=== PATIENT | female | born 1965 | race Caucasian/White ===

== ENCOUNTER → 2017-08-14 | Outpatient (CLI) | payer BC | LOC: CIMAGING 11:12 | PROVIDERS: ATTEND Orthopaedic Surgery | DX: Z01.818 Encounter for other preprocedural examination (principal); S92.901A Unspecified fracture of right foot, initial encounter for closed fracture | CPT/HCPCS: 73700-PO ==

== ENCOUNTER → 2017-09-25 | Outpatient (CLI) | payer BC | LOC: CIMAGING 10:22 | PROVIDERS: ATTEND Family Medicine | DX: J40 Bronchitis, not specified as acute or chronic (principal) | CPT/HCPCS: 71046-PO ==

== ENCOUNTER 2017-11-23 09:01 | Inpatient (IN) | payer BC ==
[2017-11-23] MEDS ORDERED: ceFAZolin 2 GM/SWFI 2 GM/20 ML SYR IVP ONE (09:25)
[2017-11-23] MEDS ORDERED: LR 1,000 ML IV ONE (09:26)
[2017-11-23] MEDS ORDERED: ceFAZolin 2 GM/DEXTROSE 100 ML IV ONE (09:30)
[2017-11-23] MEDS ORDERED: BUPIVACAINE 0.5% 30 ML SDV ONE (09:36)
--- NOTE | 2017-11-23 10:20 | PDHPUP ---
History & Physical Update H&P update statement: This history and physical update is based on an assessment of the patient which was completed after admission or registration (within 24 hours), but prior to the surgery/procedure. H&P update: H&P reviewed & patient examined, no change in patient's condition since H&P completed
[2017-11-23] MEDS ORDERED: MIDAZOLAM 2 MG/2 ML VIAL IVP ONE (10:28)
--- NOTE | 2017-11-23 10:28 | PDANEPAE ---
ANE History of Present Illness right foot fusion ANE Past Medical History - Cardiovascular History Hx Hypertension: Yes Hx Arrhythmias: No Hx Chest Pain: No Hx Coronary Artery / Peripheral Vascular Disease: No Hx CHF / Valvular Disease: No Hx Palpitations: No Cardiovascular History Comment: Pt blood pressure 155/97. - Pulmonary History Hx COPD: No Hx Asthma/Reactive Airway Disease: No Hx Recent Upper Respiratory Infection: No Hx Oxygen in Use at Home: No Hx Sleep Apnea: No Sleep Apnea Screening Result - Last Documented: Negative - Neurologic History Hx Cerebrovascular Accident: No Hx Seizures: No Hx Dementia: No - Endocrine History Hx Diabetes: Yes Endocrine History Comment: pt back on metformin and insulin - Renal History Hx Renal Disorders: No - Liver History Hx Hepatic Disorders: Yes Hepatic History Comment: fatty liver - Neurological & Psychiatric Hx Hx Neurological and Psychiatric Disorders: No - Cancer History Hx Cancer: No - Congenital Disorder History Hx Congenital Disorders: Yes Congenital History Comment: diabetes - GI History Hx Gastrointestinal Disorders: No - Other Health History Other Health History: none - Chronic Pain History Chronic Pain: No - Surgical History Prior Surgeries: right foot fx ANE Review of Systems Review of Systems: - Exercise capacity METS (RN): 4 METS ANE Patient History - Allergies Allergies/Adverse Reactions: No Known Allergies Allergy (Verified 11/20/17 11:26) - Home Medications Home medications: home medication list seen and reviewed Home Medications: Aspirin [Aspirin 325 mg (*)] 11/20/17 [Last Taken Unknown] Glipizide 11/20/17 [Last Taken 11/22/17] Insulin Glargine [Lantus 100 UNITS/ML (*)] 11/20/17 [Last Taken 11/22/17] Insulin Glargine [Lantus Syringe] 11/20/17 [Last Taken 11/22/17] Insulin Lispro [HumaLOG LISPRO] 11/20/17 [Last Taken 11/22/17] Lisinopril [Zestril 20 mg (*)] 11/20/17 [Last Taken 11/22/17] Melatonin [Melatonin 3 MG (*)] 11/20/17 [Last Taken 3 Months Ago ~08/23/17] Metformin HCl 11/20/17 [Last Taken 11/22/17] Polyethylene Glycol 3350 [Miralax 17 gm (*)] 11/20/17 [Last Taken 3 Months Ago ~08/23/17] - NPO status NPO Since - Liquids (Date): 11/22/17 NPO Since - Liquids (Time): 19:00 NPO Since - Solids (Date): 11/22/17 NPO Since - Solids (Time): 19:00 - Smoking Hx Smoking Status: Former smoker - Family Anes Hx Family Hx Anesthesia Complications: none ANE Labs/Vital Signs - Vital Signs Blood Pressure: 158/99 Heart Rate: 97 Respiratory Rate: 14 O2 Sat (%): 96 Height: 165.1 cm Weight: 68.039 kg ANE Physical Exam - Airway Neck exam: FROM Mallampati Score: Class 1 Mouth exam: normal dental/mouth exam, small mouth opening - Pulmonary Pulmonary: no respiratory distress - Cardiovascular Cardiovascular: regular rate and rhythym - ASA Status ASA Status: III ANE Anesthesia Plan Anesthesia Plan: GA w LMA
[2017-11-23] MEDS ORDERED: MIDAZOLAM 2 MG/2 ML VIAL ONE (10:29)
[2017-11-23] MEDS ORDERED: fentaNYL 100 MCG/2 ML INJ ONE ×4 (10:33→14:07)
[2017-11-23] MEDS ORDERED: LIDOCAINE 2% 5 ML SDV ONE (10:33)
[2017-11-23] MEDS ORDERED: PROPOFOL 200 MG/20 ML VIAL ONE (10:33)
[2017-11-23] MEDS ORDERED: PHENYLEPHRINE HCL 100 MCG/ML SYR ONE ×3 (10:59→13:06)
[2017-11-23] MEDS ORDERED: HYDROmorphONE/DILAUDID 2 MG/ML INJ ONE (12:49)
[2017-11-23] MEDS ORDERED: ONDANSETRON 4 MG/2 ML VIAL ONE (13:29)
[2017-11-23] MEDS ORDERED: HYDROCODONE/APAP 5/325 TAB PO PRN (13:41)
[2017-11-23] MEDS ORDERED: LR 500 ML IV PRN (13:41)
[2017-11-23] MEDS ORDERED: NALOXONE HCL 0.4 MG/ML INJ IVP PRN (13:41)
[2017-11-23] MEDS ORDERED: LABETALOL HCL 5 MG/ML 20 ML MDV IVP PRN (13:41)
[2017-11-23] MEDS ORDERED: ONDANSETRON 4 MG/2 ML VIAL IVP PRN ×2 (13:41→14:02)
[2017-11-23] MEDS ORDERED: PROMETHAZINE HCL 25 MG/ML INJ IVP PRN (13:41)
[2017-11-23] MEDS ORDERED: HYDROmorphONE/DILAUDID 2 MG/ML INJ IVP PRN (13:41)
[2017-11-23] MEDS ORDERED: ACETAMINOPHEN 500 MG TAB PO PRN (13:41)
[2017-11-23] MEDS ORDERED: oxyCODONE IR 5 MG TAB PO PRN (13:41)
[2017-11-23] MEDS ORDERED: ALBUTEROL 3 ML DEYVIAL IH PRN (13:41)
--- NOTE | 2017-11-23 13:42 | POSTANESTH ---
Post Anesthetic Evaluation Cardiovascular Status: Normal, Stable Respiratory Status: Normal, Stable Level of Consciousness/Mental Status: Can Participate in Eval Pain Control: Adequate, Prn Tx Ordered Nausea/Vomiting Control: Adequate, Prn Tx Ordered Complications Possibly Related to Anesthesia: None Noted
[2017-11-23] MEDS ORDERED: HYDROmorphONE/DILAUDID 1 MG/ML INJ IVP PRN (14:02)
--- NOTE | 2017-11-23 14:02 | POSTOPPROG ---
Post Op Note Date of Operation: 11/23/17 Surgeon: Fernando Alberts Staff Accountant: [employer] Anesthesia: GET(General Endotracheal) Pre-op Diagnosis: R midfoot collapse Post-op Diagnosis: same Procedure: R revision midfoot fusion Inf/Abcess present in the surg proc area at time of surgery?: No EBL: 50-100
[2017-11-23] MEDS ORDERED: D50W 25 GM/50 ML SYR IVP PRN (14:05)
[2017-11-23] MEDS: fentaNYL 100 MCG/2 ML INJ IVP PRN ×2 (14:10→14:38)
--- NOTE | 2017-11-23 14:51 | GOP ---
[f rep st] OPERATIVE REPORT DATE OF OPERATION: 11/23/2017 SURGEON: Fernando Alberts MD SKI LIFT MECHANIC: Jarod Duarte. ANESTHESIA: General. PREOPERATIVE DIAGNOSIS: Right failed Charcot midfoot reconstruction. POSTOPERATIVE DIAGNOSIS: Right failed Charcot midfoot reconstruction. PROCEDURE PERFORMED: 1. Hardware removal. 2. Right revision 1st and 2nd tarsometatarsal fusion and medial intercuneiform fusion. 3. Right navicular cuneiform fusion with AlloSync bone graft. FINDINGS: SPECIMENS: None. ESTIMATED BLOOD LOSS: 20 mL. INDICATIONS: This is a 51-year-old female, a brittle, uncontrolled diabetic, originally saw her for this Charcot type midfoot collapse and injury. I performed a midfoot fusion. She went onto fail this with significant displacement and loss of hardware fixation. I counseled her on risks, benefits , revision fusion. Discussed the need for strict nonweightbearing for 3 months , need for bone graft, need to fuse more joints and up to even more robust hardware and she elected to proceed. We discuss the risks of failure again, ulceration, possible amputation, need for orthotic treatment, nerve injury, continued pain. DESCRIPTION OF PROCEDURE: She was taken to the operative suite. She was sterilely prepped and draped in normal fashion. Time-out was performed verifying site, side, location with agreement of the team. The procedure was begun by exposing old incision, exposing the old hardware. There was copious scar which had to be removed. I removed all the old hardware except for 1 of the headless compression screws in the lateral inner cuneiform joint, which I felt was still intact and at least partially fused. I then prepared the joints for revision fusion of the 1st and 2nd tarsometatarsal joint as well as the inner cuneiform joint and the navicular cuneiform joints by removing the articular cartilage, removed some length of the medial column, I removed a significant scar that had formed. Manipulated this back in place and held this provisionally with K-wires. I used a pin from the navicular down through the 1st ray and placed a 5-0 headless compression night assistant the medial column headless compression type screw then placed another headless compression 5-0 screw across the intercuneiform joint. I then selected a medial plate and used distal fibular locking plate turned around backward for this. I brought plate to bone with cortical screws placed locking screws distally in the navicular cuneiform joints and then placed cortical locking screws distally all the way down the 1st ray to achieve a stable medial column construct. Placed a dorsal mid foot plate with locking screws in the navicular and 2nd metatarsal and a cortical screw in the cuneiform bridging this area as well creating secondary fixation. This was stable. She had good range of motion, checked final x-rays and applied 2 cc of AlloSync bone graft prior to much of the hardware being placed. I thoroughly irrigated this. After the tourniquet was let down closed with 0 Vicryl, 2-0 Vicryl, 3-0 Stratafix and Dermabond. She was taken to PACU in a splint and in stable condition. IMPLANTS: Arthrex distal fibular locking plate, a mid foot locking plate and 5- 0 headless compression screws along with 2.5 cc of AlloSync bone graft. COMPLICATIONS: None. DRAINS: None. CONDITION: Stable. /[id number]/MODL MTDD
--- NOTE | 2017-11-23 15:33 | PDMN ---
Medical Necessity Medical necessity: Patient meets inpatient criteria per physician note and [facility] Foot: Surgical Wound Care (hardware removal w/revision of fusions of midfoot w/bone graft; anticipated LOS > 2 midnights for IV antibiotics, IV Dilaudid for pain control post-op.)
[2017-11-23] MEDS: INSULIN LISPRO 100 UNIT/ML SC SCH (18:13)
--- NOTE | 2017-11-23 18:33 | GCON ---
[f rep ] CONSULTATION HOSPITALIST CONSULT NOTE DATE OF CONSULTATION: 11/23/2017 REQUESTING PHYSICIAN: Dr. Fernando Alberts. REASON FOR CONSULTATION: Postoperative diabetes management. HISTORY OF PRESENT ILLNESS: This is a 51-year-old female, who is postop day 0 right medial column fu belen, navicular cuneiform fusion, and revision of intercuneiform fusion with hardware removal, whom I have been asked to see for diabetes management. The patient states her diabetes has been under good control. She uses glipizide, metformin, and glargine at home. Postoperatively, her blood sugars lora ve been in the 170s. Dr. Alberts has ordered correctional insulin, but has not continued her home med ications. The patient denies any chest pain. She denies any fevers but has been having some chills. PAST MEDICAL HISTORY: Diabetes. PAST SURGICAL HISTORY: Arthrodesis, right foot. HOME MEDICATIONS: Reviewed. Refer to [employer] for details. ALLERGIES: No known drug allergies. SOCIAL HISTORY: She is a former smoker. She drinks alcohol occasionally. She is and lives with her spouse. REVIEW OF SYSTEMS: Comprehensive 10-point review of systems was done and is negative, except for as mentioned in the HPI. PHYSICAL EXAM: VITAL SIGNS: Blood pressure 167/97, pulse 93, respiratory rate 14, O2 saturation 94% on room air. Temperature afebrile. GENERAL: No acute distress. HEAD: Normocephalic atraumatic. EYES: PERRLA. CARDIOVASCULAR: S1, S2. No JVD. No lower extremity edema on the left. Right lowe r extremity is in a postoperative splint. There are 2+ dorsal pedal pulses bilaterally. PULMONARY: Lungs are clear to auscultation bilaterally. No wheezes, rales, or rhonchi. ABDOMEN: Soft, nonten tyron, nondistended. No guarding or rebound tenderness. Normoactive bowel sounds. EXTREMITIES: No c lubbing or cyanosis. NEURO: Cranial nerves 2-12 grossly intact. No focal motor or sensory deficits . DIAGNOSTICS: Glucose 177, postoperatively. Blood work from 11/20 was reviewed. Sodium 138, potassi um 4.1, chloride 102, BUN 18, creatinine 0.7, glucose 159. ASSESSMENT/PLAN: This is a 51-year-old female, postoperative day 1, right foot surgery for Charcot a rthropathy whom I have been asked to see for: 1. Postoperative diabetes management. a. Plan: The patient has been started on correctional insulin, which will be continued. We will go ahead and resume her home dose of metformin but will hold glipizide. b. Monitor blood sugars a.c. and h.s. Will also resume her home dose of glargine starting tonight a s long as she is eating. 2. History of hypertension. a. Plan: Continue home dose of lisinopril and monitor. Thank you for allowing me to participate in the care of this patient. The hospitalist service will c samiayadi to follow along with you while she is hospitalized. /[id number]/MODL
[2017-11-23] MEDS: oxyCODONE IR 5 MG TAB PO PRN ×2 (18:46→22:52)
[2017-11-23] MEDS: metFORMIN HCL 850 MG TAB PO SCH (18:46)
[2017-11-23] MEDS ORDERED: [UNRECOGNIZED DRUG - OTHER] SQ SCH (20:00)
[2017-11-23] MEDS ORDERED: INSULIN GLARGINE HUM REC ANLOG 18 UNIT SQ SCH (20:00)
[2017-11-23] MEDS ORDERED: INSULIN GLARGINE 100 UNITS/ML UNIT SC SCH (20:00)
[2017-11-23] MEDS: ACETAMINOPHEN 325 MG TAB PO PRN (20:48)
[2017-11-23] MEDS: ceFAZolin 2 GM/DEXTROSE 100 ML IV SCH (20:56)
[2017-11-24] MEDS: oxyCODONE IR 5 MG TAB PO PRN ×3 (02:33→12:28)
[2017-11-24] MEDS: ceFAZolin 2 GM/DEXTROSE 100 ML IV SCH (05:23)
[2017-11-24] MEDS: metFORMIN HCL 850 MG TAB PO SCH ×2 (08:35→12:23)
[2017-11-24] MEDS: INSULIN LISPRO 100 UNIT/ML SC SCH ×2 (08:41→12:23)
[2017-11-24] MEDS: ACETAMINOPHEN 325 MG TAB PO PRN ×2 (08:44→12:28)
[2017-11-24] MEDS ORDERED: LISINOPRIL 20 MG TAB PO SCH (09:00)
[2017-11-24] MEDS ORDERED: ASPIRIN 325 MG TAB PO SCH (09:00)
--- NOTE | 2017-11-24 09:18 | SOAPPROG ---
PATRICIA Progress Note Assessment/Plan: Assessment: Right midfoot fusion / reconstruction 11/23 Plan: non st bearing on right leg elevate ice keep dry home today 11/24/17 09:17 Subjective: pain on dorsum of foot Objective: Vital Signs Temp Pulse Resp BP Pulse Ox 37.1 C 89 16 114/75 94 11/24/17 08:00 11/24/17 08:00 11/24/17 08:00 11/24/17 08:00 11/24/17 08:00 11/23/17 11/24/17 11/25/17 05:59 05:59 05:59 Intake Total 1650 Output Total 40 Balance 1610 splint dry and intact ICD10 Worksheet Patient Problems: Problems Problem Status Onset Charcot foot due to diabetes mellitus Acute Diabetes Acute
--- NOTE | 2017-11-24 09:35 | GDS ---
[f rep st] DISCHARGE SUMMARY HOSPITAL COURSE: She was admitted after a right midfoot fusion reconstruction hardware removal for C harcot arthropathy and collapse. She did well. She had some pain in the top of the foot, but this i s able to be controlled. She is able to mobilize with Physical Therapy and stay off the foot. CONDITION AT DISCHARGE: Stable. CONSULTING PHYSICIAN: Hospitalist Service. DISPOSITION: She is being sent home. She is started on her previous home diabetic medications. She will closely monitor her sugar. She was given prescriptions for oxycodone for pain control. She wi ll elevate and ice this aggressively. She has a followup set for December 04 at 10:15 to see me. She will call or come back to the hospital if she has any concerns of chest pain, shortness of breath, in creased pain, drainage, fever, or other problems. /[id number]/MODL
[2017-11-24] MEDS ORDERED: PNEUMOCOCCAL 0.5ML VACCINE VIAL IM ONE (10:10)
[2017-11-24 11:42] VITALS: BP 112/73
--- NOTE | 2017-11-24 12:32 | HOSPPROG ---
Hospitalist Progress Note Assessment/Plan: 51f with foot surgery. First encounter, chart reviewed. #DM good control cont meds #POD #2 foot stable #HTN controlled #Dispo today per ortho Subjective: Feeling well. Eager to go home. Objective: Vital Signs Temp Pulse Resp BP Pulse Ox 37.0 C 85 16 112/73 96 11/24/17 11:39 11/24/17 11:39 11/24/17 11:39 11/24/17 11:39 11/24/17 11:39 11/23/17 11/24/17 11/25/17 05:59 05:59 05:59 Intake Total 1650 Output Total 40 Balance 1610 - Physical Exam Constitutional: no apparent distress, appears nourished Eyes: PERRL, anicteric sclera Ears, Nose, Mouth, Throat: moist mucous membranes, hearing normal Cardiovascular: No JVD, No edema Respiratory: no respiratory distress, no rales or rhonchi Gastrointestinal: No tenderness, No ascites Skin: warm, no rashes or abrasions, No mottled Musculoskeletal: pain with ROM, muscular tenderness, generalized weakness Neurologic: AAOx3 Psychiatric: interacting appropriately, not anxious, not encephalopathic ICD10 Worksheet Patient Problems: Problems Problem Status Onset Diabetes Acute Charcot foot due to diabetes mellitus Acute
== END 2017-11-24 13:03 | disposition home or self-care (01) | DRG 504 ==
LOC: FSGY 09:01 → F3N 14:02
PROVIDERS: ADMIT Orthopaedic Surgery; ATTEND Orthopaedic Surgery
PROC: 0SGP04Z Fusion of Right Toe Phalangeal Joint with Internal Fixation Device, Open Approach (ICD-10-PCS; principal; 2017-11-23 10:30)
PROC: 0QP Lower Bones, Removal (ICD-10-PCS; principal; 2017-11-23 10:30)
PROC: 0SGK04Z Fusion of Right Tarsometatarsal Joint with Internal Fixation Device, Open Approach (ICD-10-PCS; principal; 2017-11-23 10:30)
DX: T84.293A Other mechanical complication of internal fixation device of bones of foot and toes, initial encounter (principal); M96.0 Pseudarthrosis after fusion or arthrodesis; E11.610 Type 2 diabetes mellitus with diabetic neuropathic arthropathy; Z98.1 Arthrodesis status; Z87.891 Personal history of nicotine dependence
CPT/HCPCS: 97162-GP; 97166-GO; C1713; G0009; J0690; J1170; J1815; J2250; J2370; J2405; J2704; J3010